=== PATIENT | male | born 1985 | race Caucasian/White ===

== ENCOUNTER 2018-04-24 10:21 | Inpatient (IN) | payer MEDICAID, OTHER ==
[~2018-04-24] VITALS: Ht 172.7 cm; Wt 62.1 kg
[2018-04-24] MEDS ORDERED: LITH300C3 PO (10:31)
[2018-04-24] MEDS ORDERED: PARO10TA89 PO (10:31)
[2018-04-24] MEDS ORDERED: QUET200T PO (10:31)
[2018-04-24 11:20] LABS: BASOPHILS % (AUTO) 0.4 % (0.0-2.0); EOSINOPHILS % (AUTO) 0.1 % (1.0-6.0); HEMATOCRIT 46.8 % (41-53); HEMOGLOBIN 15.8 g/dL (13.5-17.5); LYMPHOCYTES # (AUTO) 1.4 K/uL (1.0-4.8); LYMPHOCYTES % (AUTO) 11.9 % (22.0-44.0); MEAN CORPUSCULAR HEMOGLOBIN 29.7 pg (26.0-34.0); MEAN CORPUSCULAR HGB CONC 33.8 G/dL (31.0-37.0); MEAN CORPUSCULAR VOLUME 88 fL (80-100); MONOCYTES # (AUTO) 1.1 K/uL (0.1-1.0); MONOCYTES % (AUTO) 9.5 % (2.0-9.0); NEUTROPHILS # (AUTO) 8.9 K/uL (1.8-7.7); NEUTROPHILS % (AUTO) 78.1 % (40.0-70.0); PLATELET COUNT (AUTO) 236 K/uL (150-450); RED BLOOD CELL COUNT(AUTO) 5.32 MIL/uL (4.50-5.90); RED CELL DISTRIBUTION WIDTH 13.8 % (11.5-14.5)
[2018-04-24 11:48] LABS: ALANINE AMINOTRANSFERASE 60 U/L (12-78); ALBUMIN 3.8 g/dL (3.4-5.0); ALKALINE PHOSPHATASE 91 U/L (46-116); ANION GAP 20 mmol/L (8-16); ASPARTATE AMINOTRANSFERASE 106 U/L (15-37); BILIRUBIN,TOTAL 0.9 mg/dL (0.1-1.0); CARBON DIOXIDE 23 mmol/L (22-29); CHLORIDE 95 mmol/L (98-107); CREATININE 0.65 mg/dL (0.60-1.30); GLOMERULAR FILTR. RATE CALC > 60 mL/min (>60); GLUCOSE,RANDOM 82 mg/dL (70-110); SODIUM SERUM 138 mmol/L (136-145); TOTAL PROTEIN, SERUM 7.1 g/dL (6.4-8.2); UREA NITROGEN, BLOOD 7 mg/dL (7-18)
[2018-04-24 11:53] LABS: POTASSIUM 2.9 mmol/L (3.5-5.1)
[2018-04-24] MEDS ORDERED: POTASSIUM CHLORIDE 10% 40 MEQ/30 ML LIQUID UDCUP PO ONE (12:15)
[2018-04-24] MEDS ORDERED: ChlordiazePOXIDE HCL 25 MG CAPSULE PO ONE (12:30)
[2018-04-24] MEDS ORDERED: ONDANSETRON HCL 4 MG TABLET PO ONE (12:30)
[2018-04-24 14:18] LABS: LITHIUM < 0.20 mmol/L (0.60-1.20)
[2018-04-24] MEDS ORDERED: GuaiFENesin/D-METHORPHAN [SUGAR-FREE] 200-20MG/10 ML SYRUP UDCUP PO PRN ×2 (14:45→19:15)
[2018-04-24] MEDS ORDERED: LORazepam 2 MG TABLET PO PRN (14:45)
[2018-04-24] MEDS ORDERED: ZOLPIDEM TARTRATE 10 MG TABLET PO PRN (14:45)
[2018-04-24] MEDS ORDERED: CYANOCOBALAMIN 1,000 MCG/ML VIAL IM ONE (14:45)
[2018-04-24] MEDS ORDERED: HydrOXYzine PAMOATE 50 MG CAPSULE PO PRN (14:45)
[2018-04-24] MEDS ORDERED: LOPERAMIDE HCL 2 MG CAPSULE PO PRN ×2 (14:45→19:15)
[2018-04-24] MEDS ORDERED: HALOPERIDOL 5 MG TABLET PO PRN (14:45)
[2018-04-24 18:00] VITALS: BP_SYST 125; BP_SYST 133; BP_DIAS 85; BP_DIAS 91
[2018-04-24] MEDS: THIAMINE HCL 100 MG TABLET PO SCH (18:11)
[2018-04-24 19:00] VITALS: BP 125/91
[2018-04-24] MEDS ORDERED: ACETAMINOPHEN 325 MG TABLET PO PRN (19:15)
[2018-04-24] MEDS ORDERED: ALBUTEROL SULFATE HFA 90 MCG/PUFF 8 GM INHALER IH PRN (19:15)
[2018-04-24] MEDS ORDERED: MAG HYDROX/AL HYDROX/SIMETH ES 30 ML SUSPENSION UDCUP PO PRN (19:15)
[2018-04-24] MEDS ORDERED: CloNIDine HCL 0.1 MG TABLET PO PRN (19:15)
[2018-04-24] MEDS ORDERED: DOCUSATE SODIUM 100 MG CAPSULE PO PRN (19:15)
[2018-04-24] MEDS ORDERED: ONDANSETRON HCL 4 MG TABLET PO PRN (19:15)
[2018-04-24] MEDS ORDERED: PETROLATUM,WHITE 71 GM JELLY TP PRN (19:15)
[2018-04-24] MEDS ORDERED: MAGNESIUM HYDROXIDE SUSPENSION 30 ML UDCUP PO PRN (19:15)
[2018-04-24] MEDS ORDERED: IBUPROFEN 400 MG TABLET PO PRN (19:15)
[2018-04-24 20:00] VITALS: BP 132/88
[2018-04-24 21:00] VITALS: BP 121/88
[2018-04-25 01:00] VITALS: BP 120/66
[2018-04-25 04:00] VITALS: BP 125/70
[2018-04-25 06:52] LABS: BASOPHILS % (AUTO) 0.4 % (0.0-2.0); EOSINOPHILS % (AUTO) 1.3 % (1.0-6.0); HEMATOCRIT 44.8 % (41-53); HEMOGLOBIN 15.2 g/dL (13.5-17.5); LYMPHOCYTES # (AUTO) 1.3 K/uL (1.0-4.8); LYMPHOCYTES % (AUTO) 20.3 % (22.0-44.0); MEAN CORPUSCULAR HEMOGLOBIN 29.9 pg (26.0-34.0); MEAN CORPUSCULAR HGB CONC 33.9 G/dL (31.0-37.0); MEAN CORPUSCULAR VOLUME 89 fL (80-100); MONOCYTES # (AUTO) 0.6 K/uL (0.1-1.0); MONOCYTES % (AUTO) 10.1 % (2.0-9.0); NEUTROPHILS # (AUTO) 4.2 K/uL (1.8-7.7); NEUTROPHILS % (AUTO) 67.9 % (40.0-70.0); PLATELET COUNT (AUTO) 175 K/uL (150-450); RED BLOOD CELL COUNT(AUTO) 5.06 MIL/uL (4.50-5.90); RED CELL DISTRIBUTION WIDTH 14.2 % (11.5-14.5)
[2018-04-25] MEDS ORDERED: LORazepam 2 MG TABLET PO PRN ×2 (07:00→13:00)
[2018-04-25 07:19] LABS: HEMOGLOBIN A1C 4.7 % (4.5-6.2)
[2018-04-25 07:38] LABS: ALANINE AMINOTRANSFERASE 76 U/L (12-78); ALBUMIN 3.2 g/dL (3.4-5.0); ALKALINE PHOSPHATASE 82 U/L (46-116); ANION GAP 11 mmol/L (8-16); ASPARTATE AMINOTRANSFERASE 123 U/L (15-37); BILIRUBIN,TOTAL 0.8 mg/dL (0.1-1.0); CARBON DIOXIDE 29 mmol/L (22-29); CHLORIDE 99 mmol/L (98-107); CHOL/HDL RATIO 1.5 (4.2-7.3); CHOLESTEROL 162 mg/dL (131-200); CREATININE 0.64 mg/dL (0.60-1.30); GLOMERULAR FILTR. RATE CALC > 60 mL/min (>60); GLUCOSE,RANDOM 89 mg/dL (70-110); HDL CHOLESTEROL 110 mg/dL (40-60); LDL CHOL (CALC.) 42 mg/dL (0-130); POTASSIUM 3.1 mmol/L (3.5-5.1); SODIUM SERUM 139 mmol/L (136-145); THYROID STIMULATING HORMONE 2.32 uIU/mL (0.36-3.74); TOTAL PROTEIN, SERUM 6.1 g/dL (6.4-8.2); TRIGLYCERIDES 50 mg/dL (15-150); UREA NITROGEN, BLOOD 6 mg/dL (7-18)
[2018-04-25 09:00] VITALS: BP 133/96
[2018-04-25] MEDS: MULTIVITAMINS WITH MINERALS, THERAPEUTIC TABLET PO SCH (09:12)
[2018-04-25] MEDS: THIAMINE HCL 100 MG TABLET PO SCH ×2 (09:13→17:33)
[2018-04-25] MEDS: FOLIC ACID 1 MG TABLET PO SCH (09:13)
[2018-04-25] MEDS: LORazepam 2 MG TABLET PO SCH ×4 (09:15→21:07)
[2018-04-25] MEDS: NICOTINE 14 MG/24 HOUR PATCH TD PRN (09:18)
[2018-04-25] MEDS ORDERED: POTASSIUM CHLORIDE 20 MEQ ER TABLET PO ONE (10:15)
[2018-04-25 12:15] VITALS: BP 120/88
[2018-04-25] MEDS: QUEtiapine FUMARATE 200 MG TABLET PO SCH (12:49)
[2018-04-25 16:15] VITALS: BP 145/96
[2018-04-25] MEDS: LITHIUM CARBONATE 300 MG CAPSULE PO SCH (17:33)
[2018-04-25] MEDS: PARoxetine HCL 10 MG TABLET PO SCH (17:33)
[2018-04-25 20:15] VITALS: BP 139/85
[2018-04-26 00:05] VITALS: BP 103/61
[2018-04-26] MEDS ORDERED: LORazepam 2 MG TABLET PO PRN (07:00)
[2018-04-26 08:30] VITALS: BP 125/95
[2018-04-26] MEDS ORDERED: LORazepam 2 MG TABLET PO SCH (09:00)
[2018-04-26] MEDS: LORazepam 2 MG TABLET PO SCH ×4 (09:00→20:21)
[2018-04-26] MEDS: LITHIUM CARBONATE 300 MG CAPSULE PO SCH ×2 (09:54→17:23)
[2018-04-26] MEDS: FOLIC ACID 1 MG TABLET PO SCH (09:54)
[2018-04-26] MEDS: THIAMINE HCL 100 MG TABLET PO SCH ×2 (09:55→17:23)
[2018-04-26] MEDS: MULTIVITAMINS WITH MINERALS, THERAPEUTIC TABLET PO SCH (09:55)
[2018-04-26] MEDS: QUEtiapine FUMARATE 200 MG TABLET PO SCH (09:55)
[2018-04-26] MEDS: PARoxetine HCL 10 MG TABLET PO SCH ×2 (09:56→17:23)
[2018-04-26] MEDS: NICOTINE 14 MG/24 HOUR PATCH TD PRN (10:00)
[2018-04-26 17:00] VITALS: BP 132/73
[2018-04-27 00:33] VITALS: BP 127/85
[2018-04-27 00:34] VITALS: BP 127/85
[2018-04-27] MEDS ORDERED: LORazepam 1 MG TABLET PO PRN (07:00)
[2018-04-27] MEDS: FOLIC ACID 1 MG TABLET PO SCH (08:25)
[2018-04-27] MEDS: THIAMINE HCL 100 MG TABLET PO SCH ×2 (08:26→16:46)
[2018-04-27] MEDS: MULTIVITAMINS WITH MINERALS, THERAPEUTIC TABLET PO SCH (08:26)
[2018-04-27] MEDS: LITHIUM CARBONATE 300 MG CAPSULE PO SCH ×2 (08:26→16:45)
[2018-04-27] MEDS: LORazepam 1 MG TABLET PO SCH ×4 (08:26→20:24)
[2018-04-27] MEDS: QUEtiapine FUMARATE 200 MG TABLET PO SCH (08:26)
[2018-04-27] MEDS: PARoxetine HCL 10 MG TABLET PO SCH ×2 (08:26→16:46)
[2018-04-27] MEDS: NICOTINE 14 MG/24 HOUR PATCH TD PRN (08:28)
[2018-04-27 12:18] VITALS: BP 124/79
[2018-04-27 12:27] VITALS: BP 128/82
[2018-04-27 17:47] VITALS: BP 106/67
[2018-04-27 18:04] VITALS: BP 106/67
[2018-04-28] MEDS ORDERED: LORazepam 1 MG TABLET PO PRN ×2 (07:00)
[2018-04-28] MEDS ORDERED: LORazepam 1 MG TABLET PO SCH (09:00)
[2018-04-28 09:39] VITALS: BP 130/68
[2018-04-28] MEDS: QUEtiapine FUMARATE 200 MG TABLET PO SCH (10:03)
[2018-04-28] MEDS: THIAMINE HCL 100 MG TABLET PO SCH ×2 (10:04→17:31)
[2018-04-28] MEDS: MULTIVITAMINS WITH MINERALS, THERAPEUTIC TABLET PO SCH (10:04)
[2018-04-28] MEDS: NICOTINE 14 MG/24 HOUR PATCH TD PRN (10:04)
[2018-04-28] MEDS: LITHIUM CARBONATE 300 MG CAPSULE PO SCH ×2 (10:04→17:31)
[2018-04-28] MEDS: PARoxetine HCL 10 MG TABLET PO SCH ×2 (10:05→17:31)
[2018-04-28] MEDS: FOLIC ACID 1 MG TABLET PO SCH (10:05)
[2018-04-28 10:35] VITALS: BP 128/74
[2018-04-28 21:44] VITALS: BP 104/62
[2018-04-28 21:45] VITALS: BP 111/64
[2018-04-29 06:17] VITALS: BP 105/68
[2018-04-29] MEDS ORDERED: LORazepam 1 MG TABLET PO PRN (07:00)
[2018-04-29] MEDS: PARoxetine HCL 10 MG TABLET PO SCH ×2 (09:38→16:18)
[2018-04-29] MEDS: FOLIC ACID 1 MG TABLET PO SCH (09:38)
[2018-04-29] MEDS: MULTIVITAMINS WITH MINERALS, THERAPEUTIC TABLET PO SCH (09:38)
[2018-04-29] MEDS: THIAMINE HCL 100 MG TABLET PO SCH ×2 (09:38→16:18)
[2018-04-29] MEDS: LITHIUM CARBONATE 300 MG CAPSULE PO SCH ×2 (09:38→16:19)
[2018-04-29] MEDS: QUEtiapine FUMARATE 200 MG TABLET PO SCH (09:38)
[2018-04-29] MEDS: NICOTINE 14 MG/24 HOUR PATCH TD PRN (09:50)
[2018-04-29 10:37] VITALS: BP 109/54
[2018-04-29 16:23] VITALS: BP 105/59
[2018-04-30 08:30] VITALS: BP 106/66
[2018-04-30] MEDS: MULTIVITAMINS WITH MINERALS, THERAPEUTIC TABLET PO SCH (09:53)
[2018-04-30] MEDS: LITHIUM CARBONATE 300 MG CAPSULE PO SCH ×2 (09:53→16:48)
[2018-04-30] MEDS: THIAMINE HCL 100 MG TABLET PO SCH ×2 (09:53→16:47)
[2018-04-30] MEDS: FOLIC ACID 1 MG TABLET PO SCH (09:53)
[2018-04-30] MEDS: QUEtiapine FUMARATE 200 MG TABLET PO SCH (09:53)
[2018-04-30] MEDS: PARoxetine HCL 10 MG TABLET PO SCH ×2 (09:53→16:48)
[2018-04-30 16:00] VITALS: BP 113/73
[2018-05-01 08:05] VITALS: BP 102/63
[2018-05-01] MEDS: MULTIVITAMINS WITH MINERALS, THERAPEUTIC TABLET PO SCH (08:55)
[2018-05-01] MEDS: QUEtiapine FUMARATE 200 MG TABLET PO SCH (08:55)
[2018-05-01] MEDS: PARoxetine HCL 10 MG TABLET PO SCH ×2 (08:56→16:20)
[2018-05-01] MEDS: FOLIC ACID 1 MG TABLET PO SCH (08:56)
[2018-05-01] MEDS: THIAMINE HCL 100 MG TABLET PO SCH ×2 (08:56→16:20)
[2018-05-01] MEDS: LITHIUM CARBONATE 300 MG CAPSULE PO SCH ×2 (08:56→16:20)
[2018-05-01] MEDS: NICOTINE 14 MG/24 HOUR PATCH TD PRN (09:45)
[2018-05-01 17:31] VITALS: BP 108/57
[2018-05-02 08:05] VITALS: BP 112/76
[2018-05-02] MEDS: QUEtiapine FUMARATE 200 MG TABLET PO SCH (08:33)
[2018-05-02] MEDS: MULTIVITAMINS WITH MINERALS, THERAPEUTIC TABLET PO SCH (08:33)
[2018-05-02] MEDS: PARoxetine HCL 10 MG TABLET PO SCH ×2 (08:33→16:59)
[2018-05-02] MEDS: THIAMINE HCL 100 MG TABLET PO SCH ×2 (08:33→16:59)
[2018-05-02] MEDS: LITHIUM CARBONATE 300 MG CAPSULE PO SCH ×2 (08:34→16:59)
[2018-05-02] MEDS: FOLIC ACID 1 MG TABLET PO SCH (08:34)
[2018-05-02 16:30] VITALS: BP 98/59
[2018-05-02 17:45] VITALS: BP 109/63
[2018-05-03 08:05] VITALS: BP 101/73
[2018-05-03] MEDS: FOLIC ACID 1 MG TABLET PO SCH (09:48)
[2018-05-03] MEDS: LITHIUM CARBONATE 300 MG CAPSULE PO SCH ×2 (09:48→16:57)
[2018-05-03] MEDS: THIAMINE HCL 100 MG TABLET PO SCH ×2 (09:48→16:57)
[2018-05-03] MEDS: PARoxetine HCL 10 MG TABLET PO SCH ×2 (09:49→16:57)
[2018-05-03] MEDS: MULTIVITAMINS WITH MINERALS, THERAPEUTIC TABLET PO SCH (09:49)
[2018-05-03] MEDS: QUEtiapine FUMARATE 200 MG TABLET PO SCH (09:51)
[2018-05-03 20:02] VITALS: BP 115/79
[2018-05-04] MEDS: FOLIC ACID 1 MG TABLET PO SCH (07:58)
[2018-05-04] MEDS: PARoxetine HCL 10 MG TABLET PO SCH ×2 (07:59→16:09)
[2018-05-04] MEDS: THIAMINE HCL 100 MG TABLET PO SCH (07:59)
[2018-05-04] MEDS: LITHIUM CARBONATE 300 MG CAPSULE PO SCH ×2 (07:59→16:09)
[2018-05-04] MEDS: QUEtiapine FUMARATE 200 MG TABLET PO SCH ×2 (07:59→16:10)
[2018-05-04] MEDS: MULTIVITAMINS WITH MINERALS, THERAPEUTIC TABLET PO SCH (08:25)
[2018-05-04] MEDS: NICOTINE 14 MG/24 HOUR PATCH TD PRN (08:26)
[2018-05-04 09:39] VITALS: BP 118/70
[2018-05-04 16:45] VITALS: BP 128/72
[2018-05-05] MEDS: MULTIVITAMINS WITH MINERALS, THERAPEUTIC TABLET PO SCH (07:51)
[2018-05-05] MEDS: LITHIUM CARBONATE 300 MG CAPSULE PO SCH (07:51)
[2018-05-05] MEDS: QUEtiapine FUMARATE 200 MG TABLET PO SCH (07:51)
[2018-05-05] MEDS: PARoxetine HCL 10 MG TABLET PO SCH (07:52)
[2018-05-05] MEDS: NICOTINE 14 MG/24 HOUR PATCH TD PRN (07:53)
[2018-05-05 08:03] VITALS: BP 100/62
[2018-05-05] MEDS ORDERED: MULT-1239 PO (11:34)
== END 2018-05-05 13:10 | disposition home or self-care (01) | DRG 750 ==
LOC: EMS 10:22 → 3EI 17:13
PROVIDERS: ADMIT Psychiatry & Neurology Psychiatry; ATTEND Psychiatry & Neurology Psychiatry
DX: F25.0 Schizoaffective disorder, bipolar type (principal); R45.851 Suicidal ideations; K70.30 Alcoholic cirrhosis of liver without ascites; Z59.0 Homelessness; D72.829 Elevated white blood cell count, unspecified; E87.6 Hypokalemia; F10.229 Alcohol dependence with intoxication, unspecified; F10.239 Alcohol dependence with withdrawal, unspecified; F41.9 Anxiety disorder, unspecified; F17.200 Nicotine dependence, unspecified, uncomplicated; Z91.19 Patient's noncompliance with other medical treatment and regimen; Z79.899 Other long term (current) drug therapy; Z71.41 Alcohol abuse counseling and surveillance of alcoholic
CPT/HCPCS: 83036; 84132; 84443; G0480; J3420; Q0162

== ENCOUNTER 2018-06-11 18:49 | Inpatient (IN) | payer MEDICAID, OTHER ==
[~2018-06-11] VITALS: Ht 167.6 cm; Wt 61.2 kg
[~2018-06-11 18:49] MED LIST: LITH300C3 PO; MULT-1239 PO; PARO10TA89 PO; QUET200T PO
[2018-06-11 21:16] LABS: BASOPHILS % (AUTO) 0.3 % (0.0-2.0); EOSINOPHILS % (AUTO) 0.1 % (1.0-6.0); HEMATOCRIT 44.6 % (41-53); LYMPHOCYTES # (AUTO) 2.4 K/uL (1.0-4.8); LYMPHOCYTES % (AUTO) 24.1 % (22.0-44.0); MEAN CORPUSCULAR HEMOGLOBIN 29.6 pg (26.0-34.0); MEAN CORPUSCULAR HGB CONC 33.7 G/dL (31.0-37.0); MEAN CORPUSCULAR VOLUME 88 fL (80-100); MONOCYTES # (AUTO) 0.5 K/uL (0.1-1.0); MONOCYTES % (AUTO) 5.2 % (2.0-9.0); NEUTROPHILS % (AUTO) 70.3 % (40.0-70.0); PLATELET COUNT (AUTO) 302 K/uL (150-450); RED BLOOD CELL COUNT(AUTO) 5.07 MIL/uL (4.50-5.90); RED CELL DISTRIBUTION WIDTH 15.2 % (11.5-14.5)
[2018-06-11 21:26] LABS: SALICYLATE 4.5 mg/dL (2.8-20.0)
[2018-06-11 21:31] LABS: ALANINE AMINOTRANSFERASE 23 U/L (12-78); ALBUMIN 3.5 g/dL (3.4-5.0); ALKALINE PHOSPHATASE 97 U/L (46-116); ANION GAP 13 mmol/L (8-16); ASPARTATE AMINOTRANSFERASE 34 U/L (15-37); BILIRUBIN,TOTAL 0.2 mg/dL (0.1-1.0); CALCIUM, TOTAL 8.6 mg/dL (8.8-10.5); CARBON DIOXIDE 25 mmol/L (22-29); CHLORIDE 104 mmol/L (98-107); CREATININE 1.05 mg/dL (0.60-1.30); GLOMERULAR FILTR. RATE CALC > 60 mL/min (>60); GLUCOSE,RANDOM 94 mg/dL (70-110); SODIUM SERUM 142 mmol/L (136-145); UREA NITROGEN, BLOOD 11 mg/dL (7-18)
[2018-06-11 21:39] LABS: POTASSIUM 2.8 mmol/L (3.5-5.1)
[2018-06-11 21:53] LABS: AMPHET/METH SCREEN,URINE NEGATIVE (NEGATIVE); APPEARANCE,URINE CLEAR (CLEAR); BARBITURATE SCREEN, URINE NEGATIVE (NEGATIVE); BENZODIAZEPINES SCREEN,URINE NEGATIVE (NEGATIVE); BILIRUBIN,URINE NEGATIVE (NEGATIVE); CANNABINOID SCREEN,URINE NEGATIVE (NEGATIVE); COCAINE SCREEN,URINE NEGATIVE (NEGATIVE); GLUCOSE, URINE (UA) NEGATIVE (NEGATIVE); KETONES,URINE 40 mg/dL (NEGATIVE); LEUKOCYTE ESTERASE ,URINE NEGATIVE (NEGATIVE); METHADONE SCREEN, URINE NEGATIVE (NEGATIVE); NITRATE,URINE NEGATIVE (NEGATIVE); OCCULT BLOOD,URINE NEGATIVE (NEGATIVE); OPIATE SCREEN,URINE NEGATIVE (NEGATIVE); PROTEIN,URINE NEGATIVE (NEGATIVE); UROBILINOGEN,URINE 0.2 mg/dL (<=1.0)
[2018-06-11 21:54] LABS: PHENCYCLIDINE SCREEN,URINE NEGATIVE (NEGATIVE)
[2018-06-11] MEDS ORDERED: POTASSIUM CHLORIDE 20 MEQ ER TABLET PO ONE (22:00)
[2018-06-11 22:55] LABS: ACETAMINOPHEN < 2 mcg/mL (10-30)
[2018-06-12] VITALS (10 sets, daily range): BP systolic 128–138; BP diastolic 76–89
[2018-06-12 03:14] LABS: POTASSIUM 3.4 mmol/L (3.5-5.1)
[2018-06-12] MEDS ORDERED: LORazepam 2 MG TABLET PO PRN ×2 (03:45→11:45)
[2018-06-12] MEDS ORDERED: HALOPERIDOL 5 MG TABLET PO PRN (03:45)
[2018-06-12] MEDS ORDERED: ACETAMINOPHEN 325 MG TABLET PO PRN (07:00)
[2018-06-12] MEDS ORDERED: IBUPROFEN 400 MG TABLET PO PRN (07:00)
[2018-06-12] MEDS ORDERED: LOPERAMIDE HCL 2 MG CAPSULE PO PRN (07:00)
[2018-06-12] MEDS ORDERED: ALBUTEROL SULFATE HFA 90 MCG/PUFF 8 GM INHALER IH PRN (07:00)
[2018-06-12] MEDS ORDERED: PETROLATUM,WHITE 71 GM JELLY TP PRN (07:00)
[2018-06-12] MEDS ORDERED: MAG HYDROX/AL HYDROX/SIMETH ES 30 ML SUSPENSION UDCUP PO PRN (07:00)
[2018-06-12] MEDS ORDERED: DOCUSATE SODIUM 100 MG CAPSULE PO PRN (07:00)
[2018-06-12] MEDS ORDERED: CloNIDine HCL 0.1 MG TABLET PO PRN (07:00)
[2018-06-12] MEDS ORDERED: ONDANSETRON HCL 4 MG TABLET PO PRN (07:00)
[2018-06-12] MEDS ORDERED: POTASSIUM CHLORIDE 20 MEQ ER TABLET PO ONE (07:00)
[2018-06-12] MEDS ORDERED: GuaiFENesin/D-METHORPHAN [SUGAR-FREE] 200-20MG/10 ML SYRUP UDCUP PO PRN (07:00)
[2018-06-12] MEDS ORDERED: MAGNESIUM HYDROXIDE SUSPENSION 30 ML UDCUP PO PRN (07:00)
[2018-06-12] MEDS: QUEtiapine FUMARATE 200 MG TABLET PO SCH (16:11)
[2018-06-12] MEDS: PARoxetine HCL 10 MG TABLET PO SCH (16:11)
[2018-06-12] MEDS: LITHIUM CARBONATE 300 MG CAPSULE PO SCH (20:10)
[2018-06-12] MEDS: ZOLPIDEM TARTRATE 10 MG TABLET PO PRN (20:30)
[2018-06-13] VITALS: BP 122/72
[2018-06-13 04:00] VITALS: BP 117/65
[2018-06-13] MEDS ORDERED: LORazepam 2 MG TABLET PO PRN (07:00)
[2018-06-13] MEDS: LITHIUM CARBONATE 300 MG CAPSULE PO SCH ×2 (09:41→20:11)
[2018-06-13] MEDS: LORazepam 2 MG TABLET PO SCH ×4 (09:41→20:11)
[2018-06-13] MEDS: PARoxetine HCL 10 MG TABLET PO SCH ×2 (09:42→17:02)
[2018-06-13] MEDS: QUEtiapine FUMARATE 200 MG TABLET PO SCH ×2 (09:42→17:02)
[2018-06-13] MEDS: NICOTINE 14 MG/24 HOUR PATCH TD PRN (09:46)
[2018-06-13 16:53] VITALS: BP 104/77
[2018-06-13] MEDS: ZOLPIDEM TARTRATE 10 MG TABLET PO PRN (22:13)
[2018-06-14 00:58] VITALS: BP 125/74
[2018-06-14 00:59] VITALS: BP 125/74
[2018-06-14 08:00] VITALS: BP 103/62
[2018-06-14 10:21] VITALS: BP 103/62
[2018-06-14] MEDS: QUEtiapine FUMARATE 200 MG TABLET PO SCH ×2 (10:43→17:26)
[2018-06-14] MEDS: LORazepam 2 MG TABLET PO SCH ×4 (10:43→20:53)
[2018-06-14] MEDS: LITHIUM CARBONATE 300 MG CAPSULE PO SCH ×2 (10:43→20:50)
[2018-06-14] MEDS: PARoxetine HCL 10 MG TABLET PO SCH ×2 (10:44→17:25)
[2018-06-14] MEDS: NICOTINE 14 MG/24 HOUR PATCH TD PRN (10:46)
[2018-06-14 19:15] VITALS: BP 98/68
[2018-06-14 19:16] VITALS: BP 98/68
[2018-06-15 06:12] VITALS: BP 101/64
[2018-06-15] MEDS ORDERED: LORazepam 1 MG TABLET PO PRN (07:00)
[2018-06-15 09:30] VITALS: BP 126/83
[2018-06-15 09:31] VITALS: BP 126/83
[2018-06-15] MEDS: LITHIUM CARBONATE 300 MG CAPSULE PO SCH ×2 (09:36→20:17)
[2018-06-15] MEDS: PARoxetine HCL 10 MG TABLET PO SCH ×2 (09:37→17:04)
[2018-06-15] MEDS: QUEtiapine FUMARATE 200 MG TABLET PO SCH ×2 (09:37→17:04)
[2018-06-15] MEDS: LORazepam 1 MG TABLET PO SCH ×4 (09:38→20:17)
[2018-06-15 16:28] VITALS: BP 121/77
[2018-06-15] MEDS: NICOTINE 14 MG/24 HOUR PATCH TD PRN (20:19)
[2018-06-15] MEDS: ZOLPIDEM TARTRATE 10 MG TABLET PO PRN (21:02)
[2018-06-16 06:12] VITALS: BP 106/59
[2018-06-16] MEDS ORDERED: LORazepam 1 MG TABLET PO PRN (07:00)
[2018-06-16 08:00] VITALS: BP 135/88
[2018-06-16] MEDS: PARoxetine HCL 10 MG TABLET PO SCH ×2 (09:23→16:05)
[2018-06-16] MEDS: LITHIUM CARBONATE 300 MG CAPSULE PO SCH ×2 (09:23→20:11)
[2018-06-16] MEDS: QUEtiapine FUMARATE 200 MG TABLET PO SCH ×2 (09:23→16:06)
[2018-06-16] MEDS: NICOTINE 14 MG/24 HOUR PATCH TD PRN (09:26)
[2018-06-16 17:00] VITALS: BP 135/87
[2018-06-16] MEDS: ZOLPIDEM TARTRATE 10 MG TABLET PO PRN (20:43)
[2018-06-17 06:02] VITALS: BP 110/60
[2018-06-17 08:00] VITALS: BP 114/77
[2018-06-17] MEDS: QUEtiapine FUMARATE 200 MG TABLET PO SCH (10:02)
[2018-06-17] MEDS: PARoxetine HCL 10 MG TABLET PO SCH (10:03)
[2018-06-17] MEDS: LITHIUM CARBONATE 300 MG CAPSULE PO SCH (10:03)
== END 2018-06-17 13:52 | disposition home or self-care (01) | DRG 750 ==
LOC: EMS 18:50 → 3EI 06-12 03:39
PROVIDERS: ADMIT Psychiatry & Neurology Psychiatry; ATTEND Psychiatry & Neurology Psychiatry
DX: F25.1 Schizoaffective disorder, depressive type (principal); R45.851 Suicidal ideations; Z59.0 Homelessness; Z28.21 Immunization not carried out because of patient refusal; K59.00 Constipation, unspecified; G47.00 Insomnia, unspecified; F41.9 Anxiety disorder, unspecified; F19.90 Other psychoactive substance use, unspecified, uncomplicated; F10.229 Alcohol dependence with intoxication, unspecified; E87.6 Hypokalemia; T50.902A Poisoning by unspecified drugs, medicaments and biological substances, intentional self-harm, initial encounter; Y92.89 Other specified places as the place of occurrence of the external cause
CPT/HCPCS: 84132; 93005; G0480; G0481

== ENCOUNTER 2025-02-11 17:05 | Emergency (ER) | payer MEDICAID, OTHER ==
[~2025-02-11] VITALS: Ht 167.6 cm; Wt 65.9 kg
[~2025-02-11 17:05] MED LIST changes: -MULT-1239 PO
[2025-02-11] MEDS: RABIES VACCINE, HUMAN DIPLOID/PF 2.5 UNITS/ML VIAL IM. ONE (20:37)
[2025-02-11] MEDS: RABIES IMMUNE GLOBULIN/PF 150 UNITS/ML 10 ML VIAL IM. ONE (20:41)
[2025-02-11 22:15] VITALS: BP 102/70; PULSE 80; RESP 18; TEMP 98; O2SAT 99
== END 2025-02-12 01:12 | disposition home or self-care (01) ==
LOC: EMS 17:05
DX: S21.152A Open bite of left front wall of thorax without penetration into thoracic cavity, initial encounter (principal); S51.852A Open bite of left forearm, initial encounter; S01.85XA Open bite of other part of head, initial encounter; F10.20 Alcohol dependence, uncomplicated; F31.9 Bipolar disorder, unspecified; F20.9 Schizophrenia, unspecified; Z29.14 Encounter for prophylactic rabies immune globulin; Z79.899 Other long term (current) drug therapy; W54.0XXA Bitten by dog, initial encounter; Y93.89 Activity, other specified; Y92.89 Other specified places as the place of occurrence of the external cause; Y99.8 Other external cause status
CPT/HCPCS: 90375; 90471; 90675; 96372; 99284